=== PATIENT | male | born 1975 | race Caucasian/White ===

== ENCOUNTER 2022-08-02 08:06 | Outpatient (CLI) | payer BC, SELFPAY ==
[2022-08-02 09:39] LABS: Kit Draw Collected
== END 2022-08-02 08:07 | disposition home or self-care (01) ==
LOC: ANHGOSHLAB 08:08
PROVIDERS: PCP Family Medicine; Visit Provider Family Medicine
DX: H93.13 Tinnitus, bilateral (principal); E53.8 Deficiency of other specified B group vitamins; E55.9 Vitamin D deficiency, unspecified; E78.5 Hyperlipidemia, unspecified; Z79.899 Other long term (current) drug therapy
CPT/HCPCS: 36415

== ENCOUNTER → 2022-11-20 08:11 | Outpatient (CLI) | payer BC, SELFPAY ==
--- NOTE | ~2022-11-20 | MR_ITS ---
MRI of the left shoulder Technique: Axial proton-density fat-sat images, coronal proton density fat-sat and T2 fat-sat images, and sagittal T1-weighted and T2 fat-sat images were acquired. Clinical History: Pain Findings: There is minimal AC joint degenerative change. Coracoclavicular, coracoacromial, and coraco humeral ligaments are intact. There is a 3 mm focal low-grade articular surface partial tear at the distal infraspinatus tendon ins ertion. There is mild supraspinatus and infraspinatus tendinosis. No partial or full-thickness supras pinatus tear identified. Subscapularis tendon is intact with mild tendinosis. Tendon of long head of the biceps is intact. There is probable anterosuperior and anterior labral tearing. There is extensive high-grade chondromalacia of the glenohumeral joint, with minimal inferomedial hum eral head osteophyte present. Inferior glenohumeral ligament is intact. There is minimal glenohumeral joint effusion. No fluid dist ention of the subacromial/subdeltoid bursa. No muscle atrophy or edema evident. There is enthesopathi c change in the humeral head of the rotator cuff insertion region. Impression: 3 mm focal low-grade articular surface partial tear at the distal infraspinatus tendon insertion. Mild rotator cuff tendinosis. Probable degenerative tearing of the anterior and anterosuperior labrum. Moderate glenohumeral joint degenerative change. Reviewed, dictated and finalized at [facility]. Impression: 3 mm focal low-grade articular surface partial tear at the distal infraspinatus tendon insertion. Mild rotator cuff tendinosis. Probable degenerative tearing of the anterior and anterosuperior labrum. Moderate glenohumeral joint degenerative change.
== END ==
PROVIDERS: PCP Family Medicine; Visit Provider Orthopaedic Surgery
DX: M19.012 Primary osteoarthritis, left shoulder (principal)
CPT/HCPCS: 73221

== ENCOUNTER 2023-11-01 02:00 | Day surgery (SDC) | payer OTHER, SELFPAY ==
[2023-10-16 13:31] VITALS: BMI 27.9
[2023-11-01 06:16] VITALS: BP 117/88; PULSE 72; RESP 18; TEMP 36.2; O2SAT 100
[2023-11-01] MEDS: LACTATED RINGERS 1,000 ML 150 ML IV CONT (06:26)
--- NOTE | 2023-11-01 07:26 | PM.IMHP ---
H&P: HPI History of Present Illness Date/Time: 11/01/23 07:26 Chief Complaint: Screening for colorectal cancer Narrative: this is a 48-year-old man who presents for his 1st colonoscopy. He denies any hematochezia or melena. He denies any family history of colon cancer. Review of Systems Review of Systems: All systems reviewed & are unremarkable except as noted in HPI and below Constitutional: Constitutional: Denies chills, Denies fever(s), Denies headache(s) and Denies weight loss Eyes: Eyes: Denies change in vision ENT: Denies dizziness, Denies headache(s), Denies neck mass and Denies throat swelling Cardiovascular: Cardiovascular: Denies chest pain, Denies lightheadedness and Denies dyspnea Respiratory: Respiratory: Denies cough, Denies dyspnea and Denies wheezing Gastrointestinal: Gastrointestinal: Denies abdominal pain, Denies change in bowel habits, Denies nausea and Denies vomiting Genitourinary: Genitourinary: Denies hematuria and Denies dysuria Musculoskeletal: Musculoskeletal: Reports as per HPI Integumentary/Breasts: Skin/Breast: Reports as per HPI Neurologic: Denies dizziness and Denies headache(s) Allergic/Immunologic: Allergic/Immunologic: Denies throat swelling and Denies wheezing PMFSH Past Medical History Medical History Arthritis of left shoulder region Dyslipidemia Hemangioma History of COVID-19 06/2020 Infection of toe Tinnitus, bilateral Surgical History Surgical History History of eyelid surgery 1999 and 2005 - Left upper eyelid surgery for venous malformation 2020 - left upper eyelid laser treatment History of surgery on upper extremity 1987 - left forearm fracture ORIF Family History Family History Father Cancer Hypertension Mother Diabetes mellitus Father Diabetes mellitus Hypertension Acute myocardial infarction Family history of lung cancer Family history of coronary artery disease Mother Diabetes mellitus Social History Social History Smoking status: Never smoker Alcohol intake: current Drinks per week: 8 Substance use: never Substance use type: does not use Current Housing: Decline to Answer Concerned About Future Housing: Decline to Answer Difficulty Paying Gas/Electric Bills: Decline to Answer Difficulty Paying for Meds: Decline to Answer Currently Unemployed: Decline to Answer Education: Decline to Answer Difficulty w/ Childcare or Family Care: Decline to Answer Living arrangements: with family 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 Gender identity (if verbalized by the patient): Male Sexual Orientation (if Verbalized by the Patient): Straight or Heterosexual Spiritual care concerns: No Meds Home Medications and Allergies Home Medications Medication Instructions Recorded Confirmed Type No Home Medications 11/29/22 03/28/23 History Allergies Allergy/AdvReac Type Severity Reaction Status Date / Time No Known Allergies Allergy Verified 11/01/23 06:15 Vital Signs Vital Signs - 24 hr 11/01/23 06:16 Temperature 36.2 C L Pulse Rate 72 Respiratory Rate 18 Blood Pressure 117/88 Pulse Oximetry 100 Oxygen Delivery Room Air Exam Const: General: no acute distress and alert Orientation/consciousness: patient oriented x3 HENMT: Head: normocephalic and atraumatic Ears: hearing grossly normal bilaterally Face/Nose/Sinus: Normal nares present Mouth: Yes Normal oral and palatal mucosa present Eyes: Periorbital: periorbital findings normal Sclera: sclerae normal EOM: EOMs intact bilaterally Neck: Neck: normal visual inspection, no lymphadenopathy and trachea midline Chest: Chest palpation & inspection: payal
--- NOTE | 2023-11-01 07:27 | WPDANESEPPF ---
Anes - Initial Pre Proc Eval Procedure: Operation Date: 11/01/23 07:30 Proposed Procedures p Screening Colonoscopy - Chuck Limon DO Date/Time: 11/01/23 07:27 Surgeon: Chuck Limon DO Pre Op Diagnosis: Screening for malignant neoplasm of colon Patient Data Age: 48 Gender: M Height: 1.8 m Weight: 90.5 kg Last Vital Signs Temp 97.2 F L 11/01/23 06:16 Pulse 72 11/01/23 06:16 Resp 18 11/01/23 06:16 BP 117/88 11/01/23 06:16 Pulse Ox 100 11/01/23 06:16 O2 Del Method Room Air 11/01/23 06:16 Allergies Allergy/AdvReac Type Severity Reaction Status Date / Time No Known Allergies Allergy Verified 11/01/23 06:15 Home Medications Medication Instructions Recorded Confirmed Type No Home Medications 11/29/22 03/28/23 History Patient hx anesthesia problems: none Family hx anesthesia problems: none Results Review: All pre-operative results and documents have been reviewed as part of the pre-operative evaluation. [facility] Past Medical History Medical History Arthritis of left shoulder region Dyslipidemia Hemangioma History of COVID-19 06/2020 Infection of toe Tinnitus, bilateral Surgical History Surgical History History of eyelid surgery 1999 and 2005 - Left upper eyelid surgery for venous malformation 2020 - left upper eyelid laser treatment History of surgery on upper extremity 1987 - left forearm fracture ORIF Family History Family History Father Cancer Hypertension Mother Diabetes mellitus Father Diabetes mellitus Hypertension Acute myocardial infarction Family history of lung cancer Family history of coronary artery disease Mother Diabetes mellitus Social History Social History Smoking status: Never smoker Alcohol intake: current Drinks per week: 8 Substance use: never Substance use type: does not use Current Housing: Decline to Answer Concerned About Future Housing: Decline to Answer Difficulty Paying Gas/Electric Bills: Decline to Answer Difficulty Paying for Meds: Decline to Answer Currently Unemployed: Decline to Answer Education: Decline to Answer Difficulty w/ Childcare or Family Care: Decline to Answer Living arrangements: with family 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 Gender identity (if verbalized by the patient): Male Sexual Orientation (if Verbalized by the Patient): Straight or Heterosexual Spiritual care concerns: No Anes - Eval Final PreProcedure Day of Procedure 11/01/23 07:27 Patient weight: normal Heart: regular rate and rhythm Lungs: clear to auscultation Airway: Mallampati scale class II Neurological: alert and oriented Last oral intake: >/= 8 hours ASA classification: II Emergent: no Anesthetic plan: proceed Anesthesia type and monitoring: general GIVS and standard monitoring Results Review: All pre-operative results and documents have been reviewed as part of the pre-operative evaluation. Informed Consent: The patient's anesthetic plan and its attendant risks and benefits were discussed with the patient/family/POA. Questions were solicited and answers provided to the satisfaction of the patient/family/POA.
[2023-11-01 07:47] VITALS: BP 106/67; PULSE 70; RESP 19; O2SAT 99
[2023-11-01 07:57] VITALS: BP 110/60; PULSE 69; RESP 21; O2SAT 99
[2023-11-01 08:07] VITALS: BP 122/78; PULSE 73; RESP 17; O2SAT 99
== END 2023-11-01 08:20 | disposition home or self-care (01) ==
PROVIDERS: PCP Family Medicine; Visit Provider Surgery
PROC: 0DJD8ZZ Inspection of Lower Intestinal Tract, Via Natural or Artificial Opening Endoscopic (ICD-10-PCS; CPT 45378; principal; 2023-11-01 07:30)
DX: Z12.11 Encounter for screening for malignant neoplasm of colon (principal); E78.49 Other hyperlipidemia
CPT/HCPCS: 45378; J2704; J7120

== ENCOUNTER 2024-08-12 07:52 | Outpatient (CLI) | payer OTHER, SELFPAY ==
--- OUTSIDE RECORDS SUMMARY | 2024-08-12 07:56 | XMS_ITS | Clinical Summary ---
Author Organization [facility] Address [address] [place] [address] Care Team Providers Care Fish And Wildlife Technician Name Role Phone Pily Britt DO Primary Care Provider [phone]- [phone] Allergies No known active allergies Medications No known medications Active Problems No known active problems Surgical History Surgery Date Site/Laterality Comments LASER SURGERY avm to face LASIK Medical History Medical History Date Comments Radial fracture ulna fx Family History Medical History Relation Name Comments Cancer Father Heart disease Father Diabetes Mother Relation Name Status Comments Father Mother Social History Tobacco Use Types Packs/Day Years Used Date Smoking Tobacco: Never Smokeless Tobacco: Never Alcohol Use Standard Drinks/Week Comments Yes 0 (1 standard drink = 0.6 oz pur e alcohol) Personal Safety Answer Date Recorded Getting School Help Needed Not on file 06/29 Sex and Gender Information Value Date Recorded Sex Assigned at Not on file 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 Gender Identity Not on file Sexual Orientation Not on file Obstetrics History Last Filed Vital Signs Vital Sign Reading Time Taken Comments Blood Pressure 120/79 06/13/2019 10:21 AM RETAIL TRAINING MANAGER Pulse 55 06/13/2019 10:21 AM RETAIL TRAINING MANAGER Temperature - - Respiratory Rate - - Oxygen Saturation - - Inhaled Oxygen Concentration - - Weight 86.2 kg (190 lb) 06/13/2019 10:21 AM RETAIL TRAINING MANAGER Height 181.6 cm (5' 11.5 ) 06/13/2019 10:[address] Body Mass Index 26.13 06/13/2019 10:21 AM RETAIL TRAINING MANAGER Plan of Treatment Not on file Insurance [employer] Care Teams Fish And Wildlife Technician Relationship Specialty Start Date End Date Pily Britt DO PCP - General Family Medicine 10/14/19
--- OUTSIDE RECORDS SUMMARY | 2024-08-12 07:56 | XMS_ITS | Referral Summary ---
Author Organization [facility] Address [address] [place] [address] Care Team Providers Care Advertising Sales Representative Name Role Phone Pily Britt DO Primary Care Provider [phone]- [phone] Allergies No known active allergies Medications No known medications Active Problems No known active problems Social History Tobacco Use Types Packs/Day Years Used Date Smoking Tobacco: Never Smokeless Tobacco: Never Alcohol Use Standard Drinks/Week Comments Yes 0 (1 standard drink = 0.6 oz pur e alcohol) Personal Safety Answer Date Recorded Getting School Help Needed Not on file 06/29 Sex and Gender Information Value Date Recorded Sex Assigned at Not on file 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 Gender Identity Not on file Sexual Orientation Not on file Last Filed Vital Signs Vital Sign Reading Time Taken Comments Blood Pressure 120/79 06/13/2019 10:21 AM STARTING GATE DRIVER Pulse 55 06/13/2019 10:21 AM STARTING GATE DRIVER Temperature - - Respiratory Rate - - Oxygen Saturation - - Inhaled Oxygen Concentration - - Weight 86.2 kg (190 lb) 06/13/2019 10:21 AM STARTING GATE DRIVER Height 181.6 cm (5' 11.5 ) 06/13/2019 10:21 AM C Body Mass Index 26.13 06/13/2019 10:21 AM STARTING GATE DRIVER Plan of Treatment Not on file Insurance [employer] Care Teams Advertising Sales Representative Relationship Specialty Start Date End Date Pily Britt DO PCP - General Family Medicine 10/14/19
--- OUTSIDE RECORDS SUMMARY | 2024-08-12 07:56 | XMS_ITS | Clinical Summary ---
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 Gender Identity Not on file Sexual Orientation Not on file Plan of Treatment Health Maintenance Due Date Last Done Comments Colorectal Cancer Screening Colonoscopy (10 Years) 1973 Annual Physical 02/02/1976 Hepatitis C 1991 DTaP, Tdap and Td Vaccines ( 1 - Tdap) 02/02/1992 Hepatitis B Vaccines (1 of 3 - 19+ 3-dose series) 02/02/1992 Pneumococcal Vaccine: 50+ Ye ars (1 of 1 - PCV) 2023 Zoster Vaccines (1 of 2) 2023 COVID-19 Vaccine ( - 2023-2 5 season) 2023 Meningococcal B Vaccine Aged Out No l onger eligible based on patient's age to complete this topic Meningococcal Vaccine Aged Out No rebecca may eligible based on patient's age to complete this topic RSV Immunizations Under 20 Months Aged Out No longer eligible based on patient's age to complete this topic
== END 2024-08-12 07:53 | disposition home or self-care (01) ==
LOC: ANHAUDIO 07:52
PROVIDERS: PCP Family Medicine; Visit Provider Family Medicine
DX: H90.3 Sensorineural hearing loss, bilateral (principal)
CPT/HCPCS: 92557; 92567

== ENCOUNTER 2024-10-08 08:00 | Outpatient (RCR) | payer OTHER, SELFPAY ==
--- NOTE | 2024-08-27 08:45 | PTOPEVAL1 ---
Assessment and note entered by Aaron Leon Evaluation Information Assessment Status Evaluation Diagnosis left leg pain Other ICD-10 Condition Codes ( S76.312A PT) Onset 11/15/23 Subjective Information Pt. reports he was doing some repetitive bending back in November. He states that shortly after he noticed pain in the back of the left thigh in the hamstring. He reports that pain is not present at rest and notices pain most with running. He states that he continues to jog regularly despite his discomfort. He states that pain is becoming less intense over the recent months. He states that he enjoys exercise and continues to exercise despite his pain. He reports that he does avoid sprinting activities due to pain. He describes pain in the middle 1/3 of the left hamstring and can radiate into the buttock. He states that it does not affect his sleep. He reports that his goal is to reduce his pain. Reported Pain Level Pain Score 0: Self Report Assessment PT Clinical Summary Pt. is a 49 year old male who enters the clinic with left posterior thigh pain due to hamstring strain. He presents with impaired l.e. flexibility, impaired proximal l.e. strength, pain and functional decline. Continued skilled PT is indicated in order to improve these areas to allow the pt. to be able to return to all normal recreational activities for a male his age without noted pain. Plan of Care Interventions Electrical Stimulation,Hot Pack/Cold Pack,Manual Therapy,Neuro Re-education,Patient/Caregiver Education,Therapeutic Activities,Therapeutic Exercise PT Services Indicated Yes Treatment Frequency and 1x/week x 4 visits Duration These treatments will address the objective and functional deficits as defined above. The patient will be advanced safely and appropriately in order for the patient to progress towards his/her prior level of function. Additional exercises will be introduced and as well as a comprehensive home exercise program upon discharge, if needed, ?to ensure carryover of functional gains achieved in the clinic. This treatment plan has been reviewed and agreement upon by the patient.
--- NOTE | 2024-08-27 08:54 | OPREHPOC ---
Outpatient Therapy Plan of Care This is a Multidisciplinary Plan of Care that may contain components documented by all disciplines (PT, OT, and ST.) PT Problem 1 PT Problem #1 Knowledge Deficit PT Goal 1 Goal / Goal Update Pt. will be independent with a HEP focused on flexibility and eccentric hamstring strengthening Target Visit 2 PT Problem 2 PT Problem #2 Impaired Strength PT Goal 1 Goal / Goal Update Pt. will present with 5/5 bilateral hip extension and abduction strength Target Visit 4 PT Problem 3 PT Problem #3 Impaired Flexibility PT Goal 1 Goal / Goal Update Pt. will present at less than 20 degrees from full knee extension with the 90/90 test Target Visit 4 PT Problem 4 PT Problem #4 Impaired Functional Mobility PT Goal 1 Goal / Goal Update Pt. will be able to return to running without reported pain for duration of 15 minutes Target Visit 4
--- NOTE | 2024-10-08 08:45 | PTOPDC ---
[facility] Evaluation Information Assessment Status Discharge Diagnosis left leg pain Other ICD-10 Condition Codes ( S76.312A PT) Onset 11/15/23 Subjective Information Pt. reports no change since he started therapy. He states that he has had more flexibility and he gets some temporary relief. He has began to develop pain into the calf that does limit his running. He states that despite his pain he continues to complete all IADL's and continues to exercise regularly. he states that he is running 1-2 days a week. He is also continuing to lift weights 1-2x/week. He has no difficulty with sleep. Reported Pain Level Pain Score 2,2: Self Report Assessment PT Clinical Summary Pt. has attended therapy over a duration of 5 weeks. In this time he demonstrates improvements in strength and flexibility. Despite these improvements he continues to deal with minor episodes of pain. Treatment has focused on flexibility, l.e. strengthening and manual techniques to reduce pain. Today discussed initiation of lumbar extension activities, as pt. presentation has become more consistent with possibility of lumbar radiculopathy. At this time he will continue with exercise, however encouraged pt. to follow up with his doctor if symptoms begin to worsen. Plan of Care PT Services Indicated No
== END 2024-10-08 09:04 | disposition home or self-care (01) ==
LOC: ANHGOSHPT 08:00
PROVIDERS: PCP Family Medicine; Visit Provider Family Medicine
DX: S76.312A Strain of muscle, fascia and tendon of the posterior muscle group at thigh level, left thigh, initial encounter (principal)
CPT/HCPCS: 97110; 97140; 97161; 97530